=== PATIENT | male | born 1990 ===

== ENCOUNTER 2022-03-24 23:05 | Inpatient (IN) | payer OTHER, SELFPAY ==
[2022-03-24] MEDS ORDERED: Fentanyl 100 MCG/2 ML VIAL ONE (23:23)
[2022-03-24] MEDS ORDERED: Boostrix 0.5 ML (Tdap) VIAL ONE (23:23)
[2022-03-24] MEDS ORDERED: Ondansetron PF 4 MG/2 ML Vial ONE (23:23)
[2022-03-24] MEDS ORDERED: Neomycin-Polymyxin 1 ML AMP ONE (23:56)
[2022-03-24] MEDS ORDERED: Betamet Acet/Betamet Na Ph 30 MG/5 ML VIAL ONE (23:56)
[2022-03-24] MEDS ORDERED: Bupivacaine PF 0.5% 30 ML VIAL ONE (23:56)
[2022-03-24] MEDS ORDERED: Thrombin 5000 UNITS/5 ML VIAL ONE (23:56)
[2022-03-24] MEDS ORDERED: Bacitracin Zinc Ointment 30 gm TUBE ONE (23:56)
[2022-03-25 00:08] LABS: #Lymphocytes 1.7 thou/uL (1.20-3.40); #Monocytes 1.3 thou/uL (0.11-0.59); #Neutrophils 16.5 thou/uL (1.40-6.50); %Eosinophils 0.1 % (0.0-10.0); %Lymphocytes 8.8 % (21.0-51.0); %Monocytes 6.7 % (0.0-10.0); %Neutrophils 84.4 % (42.0-75.0); Hemoglobin 11.5 g/dL (14.0-18.0); Mean Corpuscular HGB CONC 32.8 g/dL (32.0-36.0); Mean Corpuscular Hemoglobin 31.1 pg (27.0-31.0); Mean Corpuscular Volume 94.8 fL (78.0-98.0); Mean Platelet Volume 8.3 fL (7.4-10.4); Platelet Count 220 thou/uL (130-400); RBC Distribution Width 11.7 % (11.5-14.5); Red Blood Cell (RBC) Count 3.69 mill/uL (4.70-6.10); White Blood Cell (WBC) Count 19.5 thou/uL (4.8-10.8)
[2022-03-25] MEDS ORDERED: fentaNYL Citrate/PF 100 MCG/2 ML SYRINGE ONE ×2 (00:09→00:49)
[2022-03-25] MEDS ORDERED: Milk Of Magnesia 30 ML UDCUP PO PRN (00:16)
[2022-03-25] MEDS ORDERED: Fentanyl 100 MCG/2 ML VIAL SLOW IVP PRN (00:16)
[2022-03-25] MEDS ORDERED: Promethazine HCl 25 MG/ML VIAL IM PRN ×2 (00:16→08:46)
[2022-03-25] MEDS ORDERED: traMADol HCl 50 MG TAB PO PRN (00:16)
[2022-03-25] MEDS ORDERED: Acetaminophen 325 MG TAB PO PRN (00:16)
[2022-03-25] MEDS ORDERED: Ondansetron PF 4 MG/2 ML Vial SLOW IVP PRN (00:16)
[2022-03-25] MEDS ORDERED: Meperidine HCl/PF 25 MG/ML VIAL IM PRN (00:20)
[2022-03-25 00:21] LABS: INR-International Normal Ratio 1.1; PTT 22.9 sec (22.9-36.1); Prothrombin Time 14.1 sec (12.0-14.7)
[2022-03-25 00:30] LABS: ALT (SGPT) 9 U/L (8-55); AST (SGOT) 15 U/L (5-34); Albumin 3.4 g/dL (3.5-5.0); Alkaline Phosphatase 50 U/L (40-110); Anion Gap 11 mmol/L (10-20); BUN (Urea Nitrogen) 9 mg/dL (8.9-20.6); Bilirubin, Total 0.2 mg/dL (0.2-1.2); Calc. Creatinine Clearance 0 mL/min (70-130); Calcium 7.8 mg/dL (7.8-10.44); Carbon Dioxide 24 mmol/L (22-29); Chloride 112 mmol/L (98-107); Estimated GFR 82; Globulin 2.5 g/dL (2.4-3.5); Glucose 102 mg/dL (70-105); Potassium 4.1 mmol/L (3.5-5.1); Protein, Total 5.9 g/dL (6.0-8.3); Sodium 143 mmol/L (136-145)
[2022-03-25] MEDS ORDERED: TETANUS AND DIPHTHERIA TOX/PF 0.5 ML DISP.SYRIN IM SCH (00:30)
[2022-03-25] MEDS ORDERED: Communication Order-Pharmacy FS SCH (00:30)
[2022-03-25] MEDS ORDERED: Phenylephrine 10 MG/ML VIAL ONE ×2 (00:40)
[2022-03-25] MEDS ORDERED: PROPOFOL 200 MG/20 ML VIAL ONE (00:40)
[2022-03-25] MEDS ORDERED: Rocuronium Bromide 10 MG/ML (10ML VIAL) ONE (00:40)
[2022-03-25] MEDS ORDERED: Dexamethasone 20 MG/5 ML VIAL ONE (00:40)
[2022-03-25] MEDS ORDERED: Glycopyrrolate 0.2 MG/ML 5 ML SYRINGE ONE (00:40)
[2022-03-25] MEDS ORDERED: Ketorolac Tromethamine 30 MG/ML VIAL ONE (00:40)
[2022-03-25] MEDS ORDERED: Lidocaine 1% PF 5 ML VIAL ONE (00:40)
[2022-03-25] MEDS ORDERED: Ondansetron PF 4 MG/2 ML Vial ONE (00:40)
[2022-03-25] MEDS ORDERED: Succinylcholine 200 MG/10 ml SYRINGE FS ONE (00:40)
[2022-03-25 00:51] LABS: SARS-CoV-2 NAA Rapid Test Not Detected (NotDetected)
[2022-03-25] MEDS ORDERED: Hetastarch 6% 500 ML 0 ML ONE (01:18)
[2022-03-25] MEDS ORDERED: Heparin 10,000 UNITS/ 10 ML VIAL ONE ×2 (01:18→05:09)
[2022-03-25] MEDS ORDERED: Lidocaine 2% PF 5 ML VIAL ONE ×2 (01:18→05:09)
[2022-03-25] MEDS ORDERED: Hetastarch 6% 500 ML 500 ML ONE (01:21)
[2022-03-25 06:32] LABS: Hemoglobin 8.6 g/dL (14.0-18.0)
[2022-03-25 06:48] LABS: INR-International Normal Ratio 1.2; Prothrombin Time 14.9 sec (12.0-14.7)
[2022-03-25] MEDS ORDERED: CEFAZOLIN 1 GM VIAL ONE (08:04)
[2022-03-25] MEDS ORDERED: HYDROmorphone 2 MG/ML VIAL ONE (08:15)
[2022-03-25] MEDS ORDERED: Promethazine HCl 25 MG/ML VIAL IVPB PRN (08:46)
[2022-03-25] MEDS ORDERED: PACU-Morphine 4MG/ML VIAL SLOW IVP PRN (08:46)
[2022-03-25] MEDS ORDERED: Ketorolac Tromethamine 30 MG/ML VIAL IVP PRN (08:46)
[2022-03-25] MEDS ORDERED: HYDROmorphone 2 MG/ML VIAL SLOW IVP PRN (08:46)
[2022-03-25] MEDS ORDERED: Ondansetron HCl/PF 4 MG/2 ML Vial IVP PRN (08:46)
[2022-03-25] MEDS ORDERED: Meperidine HCl/PF 25 MG/ML VIAL SLOW IVP PRN (08:46)
[2022-03-25] MEDS ORDERED: Morphine Sulfate 2 MG/ML SYRINGE SLOW IVP PRN (08:46)
[2022-03-25] MEDS ORDERED: Heparin 25,000 units/D5W 500 ML IV SCH (10:00)
[2022-03-25 10:20] VITALS: BMI 30.4
[2022-03-25 10:31] LABS: #Lymphocytes 1.8 thou/uL (1.20-3.40); #Neutrophils 12.7 thou/uL (1.40-6.50); %Eosinophils 0.1 % (0.0-10.0); %Lymphocytes 11.4 % (21.0-51.0); %Monocytes 6.4 % (0.0-10.0); %Neutrophils 82.1 % (42.0-75.0); Hemoglobin 8.4 g/dL (14.0-18.0); Mean Corpuscular Hemoglobin 30.6 pg (27.0-31.0); Mean Corpuscular Volume 95.7 fL (78.0-98.0); Mean Platelet Volume 8.1 fL (7.4-10.4); Platelet Count 196 thou/uL (130-400); RBC Distribution Width 11.7 % (11.5-14.5); Red Blood Cell (RBC) Count 2.74 mill/uL (4.70-6.10); White Blood Cell (WBC) Count 15.4 thou/uL (4.8-10.8)
[2022-03-25 10:52] LABS: ALT (SGPT) 9 U/L (8-55); AST (SGOT) 14 U/L (5-34); Albumin 2.9 g/dL (3.5-5.0); Alkaline Phosphatase 37 U/L (40-110); Anion Gap 11 mmol/L (10-20); BUN (Urea Nitrogen) 8 mg/dL (8.9-20.6); Bilirubin, Total 0.3 mg/dL (0.2-1.2); Calc. Creatinine Clearance 130 mL/min (70-130); Calcium 7.1 mg/dL (7.8-10.44); Carbon Dioxide 23 mmol/L (22-29); Chloride 111 mmol/L (98-107); Estimated GFR 96; Globulin 1.9 g/dL (2.4-3.5); Glucose 201 mg/dL (70-105); Potassium 4.6 mmol/L (3.5-5.1); Protein, Total 4.8 g/dL (6.0-8.3); Sodium 140 mmol/L (136-145)
[2022-03-25] MEDS: Aspirin 81 mg Enteric Coated Tablet PO SCH ×2 (10:55→21:32)
[2022-03-25] MEDS: Ketorolac Tromethamine 30 MG/ML VIAL IVP SCH ×4 (10:55→23:12)
[2022-03-25] MEDS: Sodium Chloride 0.9% 1,000 ML IV SCH ×3 (10:55→21:00)
[2022-03-25] MEDS: Vancomycin 1.5 GRAM/300 ML BAG 1.5 GM in Premix Bag 1 BAG IVPB SCH ×2 (12:00→23:13)
[2022-03-25] MEDS ORDERED: Gentamicin Sulfate 80 MG in Premix Bag 1 BAG IVPB SCH (14:00)
[2022-03-25] MEDS: Gentamicin 80 MG/2 ML VIAL IM SCH (14:35)
[2022-03-25] MEDS: Morphine 4 MG/ML VIAL SLOW IVP PRN (20:01)
[2022-03-25] MEDS ORDERED: Vancomycin 1.5 GRAM/300 ML BAG 1.5 GM in Premix Bag 1 BAG IVPB SCH (21:00)
[2022-03-26] MEDS: Gentamicin Sulfate 80 MG in Premix Bag 1 BAG IVPB SCH ×3 (02:03→19:40)
[2022-03-26] MEDS: Morphine 4 MG/ML VIAL SLOW IVP PRN (03:03)
[2022-03-26] MEDS: Ketorolac Tromethamine 30 MG/ML VIAL IVP SCH (05:19)
[2022-03-26] MEDS: Sodium Chloride 0.9% 1,000 ML IV SCH ×2 (07:39→21:07)
[2022-03-26] MEDS: HYDROcodone/Acetaminophen 5/325 mg Tablet PO PRN ×2 (07:45→21:45)
[2022-03-26] MEDS: Aspirin 81 mg Enteric Coated Tablet PO SCH ×2 (08:32→21:26)
[2022-03-26] MEDS: Pantoprazole 40 MG VIAL IVP SCH (08:33)
[2022-03-26] MEDS: Vancomycin 1.5 GRAM/300 ML BAG 1.5 GM in Premix Bag 1 BAG IVPB SCH ×2 (12:55→21:45)
[2022-03-26] MEDS ORDERED: Heparin 25,000 units/D5W 500 ML IV SCH (22:30)
[2022-03-27] MEDS: Sodium Chloride 0.9% 1,000 ML IV SCH (02:55)
[2022-03-27] MEDS: HYDROcodone/Acetaminophen 5/325 mg Tablet PO PRN (04:18)
[2022-03-27 05:28] LABS: #Basophils 0.1 thou/uL (0.0-0.2); #Lymphocytes 2.4 thou/uL (1.20-3.40); #Monocytes 1.1 thou/uL (0.11-0.59); #Neutrophils 6.8 thou/uL (1.40-6.50); %Eosinophils 0.3 % (0.0-10.0); %Lymphocytes 23.2 % (21.0-51.0); %Monocytes 10.4 % (0.0-10.0); %Neutrophils 65.2 % (42.0-75.0); Hemoglobin 6.5 g/dL (14.0-18.0); Mean Corpuscular HGB CONC 33.8 g/dL (32.0-36.0); Mean Corpuscular Hemoglobin 32.3 pg (27.0-31.0); Mean Corpuscular Volume 95.8 fL (78.0-98.0); Platelet Count 165 thou/uL (130-400); RBC Distribution Width 11.5 % (11.5-14.5); White Blood Cell (WBC) Count 10.4 thou/uL (4.8-10.8)
[2022-03-27] MEDS: Pantoprazole 40 MG VIAL IVP SCH (10:41)
[2022-03-27] MEDS: Aspirin 81 mg Enteric Coated Tablet PO SCH (10:41)
[2022-03-27] MEDS ORDERED: Morphine 4 MG/ML VIAL SLOW IVP PRN (12:08)
[2022-03-27] MEDS ORDERED: Tamsulosin HCl 0.4 MG CAP PO SCH (12:15)
[2022-03-27 12:31] LABS: #Eosinphils 0.1 thou/uL (0.0-0.7); #Lymphocytes 2.1 thou/uL (1.20-3.40); #Neutrophils 7.5 thou/uL (1.40-6.50); %Basophils 0.2 % (0.0-1.0); %Eosinophils 0.5 % (0.0-10.0); %Lymphocytes 19.6 % (21.0-51.0); %Monocytes 8.9 % (0.0-10.0); %Neutrophils 70.7 % (42.0-75.0); Hemoglobin 6.8 g/dL (14.0-18.0); Mean Corpuscular HGB CONC 34.1 g/dL (32.0-36.0); Mean Corpuscular Hemoglobin 32.3 pg (27.0-31.0); Mean Corpuscular Volume 94.9 fL (78.0-98.0); Mean Platelet Volume 8.1 fL (7.4-10.4); Platelet Count 171 thou/uL (130-400); RBC Distribution Width 11.5 % (11.5-14.5); Red Blood Cell (RBC) Count 2.11 mill/uL (4.70-6.10); White Blood Cell (WBC) Count 10.6 thou/uL (4.8-10.8)
[2022-03-27] MEDS ORDERED: Morphine 4 MG/ML VIAL ONE (12:31)
[2022-03-27 12:32] LABS: Lactic Acid 1.9 mmol/L (0.5-2.2)
[2022-03-27 12:36] LABS: INR-International Normal Ratio 1.1; PTT 25.8 sec (22.9-36.1); Prothrombin Time 14.2 sec (12.0-14.7)
[2022-03-27 12:37] LABS: ALT (SGPT) 11 U/L (8-55); AST (SGOT) 28 U/L (5-34); Albumin 2.9 g/dL (3.5-5.0); Alkaline Phosphatase 36 U/L (40-110); Anion Gap 11 mmol/L (10-20); BUN (Urea Nitrogen) 5 mg/dL (8.9-20.6); Bilirubin, Total 0.2 mg/dL (0.2-1.2); Calc. Creatinine Clearance 165 mL/min (70-130); Calcium 7.8 mg/dL (7.8-10.44); Carbon Dioxide 29 mmol/L (22-29); Chloride 103 mmol/L (98-107); Estimated GFR 120; Globulin 2.3 g/dL (2.4-3.5); Glucose 124 mg/dL (70-105); Magnesium 1.7 mg/dL (1.6-2.6); Phosphorus 2.6 mg/dL (2.3-4.7); Potassium 3.1 mmol/L (3.5-5.1); Protein, Total 5.2 g/dL (6.0-8.3); Sodium 140 mmol/L (136-145)
[2022-03-27] MEDS: Vancomycin 1.5 GRAM/300 ML BAG 1.5 GM in Premix Bag 1 BAG IVPB SCH ×2 (13:21→23:30)
[2022-03-27] MEDS: Acetaminophen 325 MG TAB PO SCH ×3 (13:21→23:30)
[2022-03-27] MEDS ORDERED: Potassium Phosphate 30 MMOL in Sodium Chloride 0.9% 250 ML 250 ML IVPB SCH (14:00)
[2022-03-27] MEDS ORDERED: Magnesium 2 GM/50 ML(in water) 2 GM in Premix Bag 1 BAG IVPB SCH (14:00)
[2022-03-27] MEDS: Gabapentin 300 MG CAP PO SCH ×2 (14:59→21:38)
[2022-03-27] MEDS: traMADol HCl 50 MG TAB PO SCH ×2 (17:26→23:29)
[2022-03-27] MEDS: Ferrous Sulfate 325 MG TAB PO SCH (17:28)
[2022-03-27 19:20] LABS: Hemoglobin 8.2 g/dL (14.0-18.0)
[2022-03-27] MEDS: Famotidine 20 MG TAB PO SCH (21:37)
[2022-03-27] MEDS: Ascorbic Acid 500 mg Chewable Tablet PO SCH (21:37)
[2022-03-27] MEDS: Senokot S 8.6-50 MG TAB PO SCH (21:39)
[2022-03-28] MEDS: traMADol HCl 50 MG TAB PO SCH ×4 (06:22→23:28)
[2022-03-28] MEDS: Gabapentin 300 MG CAP PO SCH ×3 (06:23→22:08)
[2022-03-28] MEDS: Acetaminophen 325 MG TAB PO SCH ×4 (06:24→23:28)
[2022-03-28 06:58] LABS: #Eosinphils 0.1 thou/uL (0.0-0.7); #Lymphocytes 2.6 thou/uL (1.20-3.40); #Neutrophils 7.6 thou/uL (1.40-6.50); %Basophils 0.2 % (0.0-1.0); %Eosinophils 1.3 % (0.0-10.0); %Lymphocytes 22.6 % (21.0-51.0); %Monocytes 8.8 % (0.0-10.0); %Neutrophils 67.2 % (42.0-75.0); Hemoglobin 7.7 g/dL (14.0-18.0); Mean Platelet Volume 7.9 fL (7.4-10.4); Platelet Count 186 thou/uL (130-400); RBC Distribution Width 11.6 % (11.5-14.5); Red Blood Cell (RBC) Count 2.48 mill/uL (4.70-6.10); White Blood Cell (WBC) Count 11.3 thou/uL (4.8-10.8)
[2022-03-28 07:28] LABS: Anion Gap 12 mmol/L (10-20); BUN (Urea Nitrogen) 6 mg/dL (8.9-20.6); Calc. Creatinine Clearance 181 mL/min (70-130); Calcium 7.8 mg/dL (7.8-10.44); Carbon Dioxide 29 mmol/L (22-29); Chloride 103 mmol/L (98-107); Estimated GFR 123; Glucose 91 mg/dL (70-105); Magnesium 1.9 mg/dL (1.6-2.6); Phosphorus 4.3 mg/dL (2.3-4.7); Potassium 3.6 mmol/L (3.5-5.1); Sodium 140 mmol/L (136-145)
[2022-03-28] MEDS ORDERED: Potassium Chloride 20 MEQ TAB PO SCH (09:45)
[2022-03-28] MEDS: Ascorbic Acid 500 mg Chewable Tablet PO SCH ×2 (09:49→22:07)
[2022-03-28] MEDS: Senokot S 8.6-50 MG TAB PO SCH ×2 (09:49→22:07)
[2022-03-28] MEDS: Polyethylene Glycol 3350 17 GM Packet PO SCH (09:49)
[2022-03-28] MEDS: Famotidine 20 MG TAB PO SCH ×2 (09:49→22:08)
[2022-03-28] MEDS: Tamsulosin HCl 0.4 MG CAP PO SCH (09:49)
[2022-03-28] MEDS: Ferrous Sulfate 325 MG TAB PO SCH ×2 (09:50→18:25)
[2022-03-28 11:54] LABS: #Eosinphils 0.1 thou/uL (0.0-0.7); #Lymphocytes 2.4 thou/uL (1.20-3.40); #Monocytes 0.9 thou/uL (0.11-0.59); #Neutrophils 7.1 thou/uL (1.40-6.50); %Basophils 0.1 % (0.0-1.0); %Eosinophils 1.3 % (0.0-10.0); %Lymphocytes 22.7 % (21.0-51.0); %Monocytes 8.7 % (0.0-10.0); %Neutrophils 67.1 % (42.0-75.0); Hemoglobin 7.9 g/dL (14.0-18.0); Mean Corpuscular HGB CONC 33.9 g/dL (32.0-36.0); Mean Corpuscular Hemoglobin 32.1 pg (27.0-31.0); Mean Corpuscular Volume 94.7 fL (78.0-98.0); Mean Platelet Volume 7.3 fL (7.4-10.4); Platelet Count 193 thou/uL (130-400); RBC Distribution Width 11.7 % (11.5-14.5); Red Blood Cell (RBC) Count 2.45 mill/uL (4.70-6.10); White Blood Cell (WBC) Count 10.5 thou/uL (4.8-10.8)
[2022-03-29] MEDS: traMADol HCl 50 MG TAB PO SCH ×3 (05:45→17:57)
[2022-03-29] MEDS: Acetaminophen 325 MG TAB PO SCH ×3 (05:45→17:56)
[2022-03-29] MEDS: Gabapentin 300 MG CAP PO SCH ×3 (05:46→21:13)
[2022-03-29 06:52] LABS: #Eosinphils 0.2 thou/uL (0.0-0.7); #Lymphocytes 2.5 thou/uL (1.20-3.40); #Monocytes 0.9 thou/uL (0.11-0.59); %Basophils 0.2 % (0.0-1.0); %Eosinophils 1.4 % (0.0-10.0); %Lymphocytes 21.6 % (21.0-51.0); %Monocytes 7.7 % (0.0-10.0); Hemoglobin 8.5 g/dL (14.0-18.0); Mean Corpuscular HGB CONC 33.3 g/dL (32.0-36.0); Mean Corpuscular Hemoglobin 31.1 pg (27.0-31.0); Mean Corpuscular Volume 93.5 fL (78.0-98.0); Mean Platelet Volume 7.5 fL (7.4-10.4); Platelet Count 235 thou/uL (130-400); RBC Distribution Width 12.3 % (11.5-14.5); Red Blood Cell (RBC) Count 2.74 mill/uL (4.70-6.10); White Blood Cell (WBC) Count 11.6 thou/uL (4.8-10.8)
[2022-03-29] MEDS: Ferrous Sulfate 325 MG TAB PO SCH ×2 (08:10→17:56)
[2022-03-29] MEDS: Ascorbic Acid 500 mg Chewable Tablet PO SCH ×2 (08:10→21:13)
[2022-03-29] MEDS: Tamsulosin HCl 0.4 MG CAP PO SCH (08:10)
[2022-03-29] MEDS: Famotidine 20 MG TAB PO SCH ×2 (08:10→21:13)
[2022-03-29] MEDS: Polyethylene Glycol 3350 17 GM Packet PO SCH (08:11)
[2022-03-29] MEDS: Senokot S 8.6-50 MG TAB PO SCH ×2 (08:11→21:13)
[2022-03-29 15:23] LABS: #Basophils 0.1 thou/uL (0.0-0.2); #Eosinphils 0.2 thou/uL (0.0-0.7); #Lymphocytes 2.5 thou/uL (1.20-3.40); #Monocytes 0.8 thou/uL (0.11-0.59); #Neutrophils 7.3 thou/uL (1.40-6.50); %Basophils 0.6 % (0.0-1.0); %Eosinophils 2.1 % (0.0-10.0); %Lymphocytes 22.8 % (21.0-51.0); %Monocytes 7.3 % (0.0-10.0); %Neutrophils 67.1 % (42.0-75.0); Hemoglobin 9.2 g/dL (14.0-18.0); Mean Corpuscular HGB CONC 34.4 g/dL (32.0-36.0); Mean Corpuscular Hemoglobin 32.4 pg (27.0-31.0); Mean Corpuscular Volume 94.4 fL (78.0-98.0); Mean Platelet Volume 7.5 fL (7.4-10.4); Platelet Count 255 thou/uL (130-400); RBC Distribution Width 12.5 % (11.5-14.5); Red Blood Cell (RBC) Count 2.83 mill/uL (4.70-6.10); White Blood Cell (WBC) Count 10.9 thou/uL (4.8-10.8)
[2022-03-30] MEDS: Acetaminophen 325 MG TAB PO SCH ×4 (00:17→17:30)
[2022-03-30] MEDS: traMADol HCl 50 MG TAB PO SCH ×4 (00:18→17:31)
[2022-03-30] MEDS: Gabapentin 300 MG CAP PO SCH ×3 (05:21→21:23)
[2022-03-30] MEDS: Famotidine 20 MG TAB PO SCH ×2 (09:17→21:23)
[2022-03-30] MEDS: Ascorbic Acid 500 mg Chewable Tablet PO SCH ×2 (09:17→21:23)
[2022-03-30] MEDS: Tamsulosin HCl 0.4 MG CAP PO SCH (09:17)
[2022-03-30] MEDS: Ferrous Sulfate 325 MG TAB PO SCH ×2 (09:17→17:31)
[2022-03-30] MEDS: Polyethylene Glycol 3350 17 GM Packet PO SCH (09:23)
[2022-03-30] MEDS: Senokot S 8.6-50 MG TAB PO SCH ×2 (09:23→21:22)
[2022-03-31] MEDS: traMADol HCl 50 MG TAB PO SCH ×5 (00:21→23:34)
[2022-03-31] MEDS: Acetaminophen 325 MG TAB PO SCH ×5 (00:21→23:34)
[2022-03-31] MEDS: Gabapentin 300 MG CAP PO SCH ×3 (07:22→20:55)
[2022-03-31] MEDS: Senokot S 8.6-50 MG TAB PO SCH ×2 (09:20→20:55)
[2022-03-31] MEDS: Ferrous Sulfate 325 MG TAB PO SCH ×2 (09:20→16:59)
[2022-03-31] MEDS: Polyethylene Glycol 3350 17 GM Packet PO SCH (09:20)
[2022-03-31] MEDS: Ascorbic Acid 500 mg Chewable Tablet PO SCH ×2 (09:20→20:55)
[2022-03-31] MEDS: Famotidine 20 MG TAB PO SCH ×2 (09:20→20:55)
[2022-03-31] MEDS: Tamsulosin HCl 0.4 MG CAP PO SCH (09:21)
[2022-03-31 11:02] LABS: Actual Bicarbonate (HCO3v) 21 mEq/L (22-28); Analyzer IN Cardio OR; Base Excess -3.8 mEq/L (-2.0 to +3.0); Calcium, Ionized (venous) 1.03 mmol/L (1.16-1.32); Chloride (VBG) 111 mmol/L (98-106); Hemoglobin (Hb) 8.9 g/dL (13.2-17.3); Potassium (VBG) 4.15 mmol/L (3.70-5.30); Sodium 134.6 mmol/L (133-146); pH (venous) 7.37 (7.32-7.43)
[2022-04-01] MEDS: traMADol HCl 50 MG TAB PO SCH ×2 (05:44→11:40)
[2022-04-01] MEDS: Acetaminophen 325 MG TAB PO SCH ×2 (05:45→11:41)
[2022-04-01] MEDS: Gabapentin 300 MG CAP PO SCH (05:45)
[2022-04-01 08:17] VITALS: TEMP 97.9
[2022-04-01] MEDS: Famotidine 20 MG TAB PO SCH (09:43)
[2022-04-01] MEDS: Ascorbic Acid 500 mg Chewable Tablet PO SCH (09:43)
[2022-04-01] MEDS: Ferrous Sulfate 325 MG TAB PO SCH (09:43)
[2022-04-01] MEDS: Polyethylene Glycol 3350 17 GM Packet PO SCH (09:43)
[2022-04-01] MEDS: Senokot S 8.6-50 MG TAB PO SCH (09:43)
[2022-04-01] MEDS: Tamsulosin HCl 0.4 MG CAP PO SCH (09:43)
[2022-04-01 11:35] VITALS: BP 115/74
== END 2022-04-01 12:50 | DRG 41 ==
LOC: ERS 23:05 → SURG B 03-25 00:49 → SDC 03-25 00:49 → CCU 03-25 10:06 → EEVIPCON 03-25 10:06 → UNDOADMIN 03-25 10:06 → SURG B 03-26 16:19
PROVIDERS: ADMIT Orthopaedic Surgery Hand Surgery; ATTEND Orthopaedic Surgery Hand Surgery
PROC: 01Q60ZZ Repair Radial Nerve, Open Approach (ICD-10-PCS; principal; 2022-03-25)
PROC: 01Q50ZZ Repair Median Nerve, Open Approach (ICD-10-PCS; 2022-03-25)
PROC: 0LQ70ZZ Repair Right Hand Tendon, Open Approach (ICD-10-PCS; 2022-03-25)
PROC: 01Q40ZZ Repair Ulnar Nerve, Open Approach (ICD-10-PCS; 2022-03-25)
PROC: 03QB0ZZ Repair Right Radial Artery, Open Approach (ICD-10-PCS; 2022-03-25)
PROC: 0KB90ZZ Excision of Right Lower Arm and Wrist Muscle, Open Approach (ICD-10-PCS; 2022-03-25)
PROC: 30233N1 Transfusion of Nonautologous Red Blood Cells into Peripheral Vein, Percutaneous Approach (ICD-10-PCS; 2022-03-27)
DX: S64.21XA Injury of radial nerve at wrist and hand level of right arm, initial encounter (principal); S55.111A Laceration of radial artery at forearm level, right arm, initial encounter; D62 Acute posthemorrhagic anemia; S56.221A Laceration of other flexor muscle, fascia and tendon at forearm level, right arm, initial encounter; S64.01XA Injury of ulnar nerve at wrist and hand level of right arm, initial encounter; S64.11XA Injury of median nerve at wrist and hand level of right arm, initial encounter; Z20.822 Contact with and (suspected) exposure to COVID-19; Z23 Encounter for immunization; R33.8 Other retention of urine; E87.6 Hypokalemia; E83.39 Other disorders of phosphorus metabolism; E83.42 Hypomagnesemia; W25.XXXA Contact with sharp glass, initial encounter; Y92.149 Unspecified place in prison as the place of occurrence of the external cause
CPT/HCPCS: 36415; 36430; 71045; 76000; 80048; 80053; 82805; 83605; 83735; 84100; 85025; 85610; 85730; 86850; 86900; 86901; 90471; 90715; 96374; C1713; C1776; C9113; C9352; G0390; J0690; J0702; J1100; J1170; J1580; J1644; J1885; J2001; J2175; J2270; J2370; J2405; J2704; J2710; J3010; J3370; J3475; J7050; P9016; S0020; U0002; U0003; U0005